=== PATIENT | male | born 1985 | race African-American/Black ===

== ENCOUNTER 2021-02-19 17:04 | Observation (INO) | payer SELFPAY ==
[2021-02-19] MEDS ORDERED: Sodium Chloride 0.9% 1,000 ML IV ONE ×3 (18:27→22:09)
--- NOTE | 2021-02-19 18:33 | EDM.PDOC ---
ED HPI GENERAL MEDICAL PROBLEM - General Chief Complaint: Exposure to Heat or Cold Stated Complaint: HEAT EXHAUSTION Time Seen by Provider: 02/19/21 17:16 - History of Present Illness INITIAL COMMENTS - FREE TEXT/NARRATIVE: 35-year-old male history of hypertension diabetes presents to the emergency department complaining of feeling weakness after working outside in the heat. 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 He had a 30-minute break when he was in the car and the air conditioner. Patient had one episode of vomiting. Patient denies any chest pain or shortness of breath. There is no diarrhea or abdominal pain. There are no other symptoms. Patient is feeling better now that he is out of the sun. - Related Data Allergies Allergy/AdvReac Type Severity Reaction Status Date / Time No Known Allergies Allergy Verified 02/19/21 18:07 Home Meds: Home Meds Enalapril [Vasotec] 10 mg PO DAILY 02/19/21 [History] atorvaSTATin [Lipitor] 80 mg PO DAILY 02/19/21 [History] metFORMIN [Glucophage XR] 1,000 mg PO BID 02/19/21 [History] Past Medical History HEENT History: Reports: None Cardiovascular History: Reports: High Cholesterol, Hypertension Respiratory History: Reports: None Gastrointestinal History: Reports: None Genitourinary History: Reports: None Musculoskeletal History: Reports: None Neurological History: Reports: None Psychiatric History: Reports: None Endocrine/Metabolic History: Reports: Diabetes, Type II Hematologic History: Reports: None Immunologic History: Reports: None Oncologic (Cancer) History: Reports: None Dermatologic History: Reports: None - Infectious Disease History Infectious Disease History: Reports: None - Past Surgical History Head Surgeries/Procedures: Reports: None HEENT Surgical History: Reports: None Cardiovascular Surgical History: Reports: None Respiratory Surgical History: Reports: None GI Surgical History: Reports: None Male Surgical History: Reports: None Endocrine Surgical History: Reports: None Neurological Surgical History: Reports: None Musculoskeletal Surgical History: Reports: None Oncologic Surgical History: Reports: None Dermatological Surgical History: Reports: None Social & Family History - Family History Family Medical History: No Pertinent Family History - Tobacco Use Tobacco Use Status *Q: Never Tobacco User - Recreational Drug Use Recreational Drug Use: Yes Recreational Drug Type: Reports: Marijuana/Hashish Recreational Drug Use Frequency: Rarely ED ROS GENERAL - Review of Systems Review Of Systems: See Below Constitutional: Denies: Fever Respiratory: Denies: Shortness of Breath Cardiovascular: Denies: Chest Pain GI/Abdominal: Reports: Vomiting. Denies: Abdominal Pain : Denies: Dysuria, Flank Pain Musculoskeletal: Reports: Joint Pain Skin: Denies: Rash Neurological: Denies: Confusion, Dizziness, Headache, Numbness, Paresthesia, Trouble Speaking, Change in Speech Free Text/Narrative/Comment: Constitutional: No fevers, chills, Respiratory: No shortness of breath, cough Cardiovascular: No Chest pain, palpitations Gastrointestinal: No diarrhea Genitourinary: No pain with urination. No frequency Tello/Lymph: Negative for bruising tendency, Musculoskeletal: no decreased range of motion, trauma Integumentary: No rash, bruising Neurologic: No numbness or weakness ED EXAM, GENERAL - Physical Exam Exam: See Below Free Text/Narrative:: CONSTITUTIONAL: well appearing in no acute distress SKIN: Warm, dry, and intact without rash HENT: Normocephalic, atraumatic, PULMONARY: clear to ausculation bilaterally. No rales, rhonchi, wheezing CARDIOVASCULAR: regular rate, No murmur, rubs, or gallops GASTROINTESTINAL: nondistended, nontender NEUROLOGIC: normal speech, II-XII intact. light touch/5/5 power equal and symmetric in upper and lower extremities without deficit. GCSL 15 MUSCULOSKELETAL: no gross deformities, atraumatic PSYCHIATRIC: normal mood and affect Course - Vital Signs Text/Narrative:: Patient presents to the emergency department with heat related illness. Patient has evidence of rhabdomyolysis with ATA. Moderate bump in LFTs. Patient treated with IV fluids and was brought in for continued treatment and management. Admitted 8pm Narcissa. Last Recorded V/S: Last Vital Signs Temp 36.3 C 02/19/21 18:08 Pulse 100 02/19/21 19:55 Resp 18 02/19/21 19:55 BP 130/70 02/19/21 19:55 Pulse Ox 97 02/19/21 19:55 - Orders/Labs/Meds Orders: Active Orders 24 hr Category Date Time Status Admission Status [Patient Status] [ADT] Stat ADT 02/19/21 20:10 Active Labs: Laboratory Tests 02/19/21 02/19/21 02/19/21 Range/Units 18:40 18:40 18:40 WBC 9.90 (4.0-11.0) K/uL RBC 5.67 (4.50-5.90) M/uL Hgb 14.9 (13.0-17.0) g/dL Hct 44.7 (38.0-50.0) % MCV 78.8 L (80.0-98.0) fL MCH 26.3 L (27.0-32.0) pg MCHC 33.3 (31.0-37.0) g/dL RDW Std Deviation 39.8 (28.0-62.0) fl RDW Coeff of Mary 14 (11.0-15.0) % Plt Count 337 (150-400) K/uL MPV 10.80 (7.40-12.00) fL Neut % (Auto) 61.1 (48.0-80.0) % Lymph % (Auto) 30.5 (16.0-40.0) % [place] % (Auto) 8.1 (0.0-15.0) % Eos % (Auto) 0.1 (0.0-7.0) % Baso % (Auto) 0.2 (0.0-1.5) % Neut # (Auto) 6.1 H (1.4-5.7) K/uL Lymph # (Auto) 3.0 H (0.6-2.4) K/uL [place] # (Auto) 0.8 (0.0-0.8) K/uL Eos # (Auto) 0.0 (0.0-0.7) K/uL Baso # (Auto) 0.0 (0.0-0.1) K/uL Nucleated RBC % 0.0 /100WBC Nucleated RBCs # 0 K/uL INR 1.06 Sodium 131 L (136-148) mmol/L Potassium 5.6 H (3.5-5.1) mmol/L Chloride 95 L (98-107) mmol/L Carbon Dioxide 27.6 (21.0-32.0) mmol/L BUN 25 H (7.0-18.0) mg/dL Creatinine 1.7 H (0.8-1.3) mg/dL Est Cr Clr Drug Dosing 63.37 mL/min Estimated GFR (MDRD) 55.2 ml/min Glucose 146 H (74-106) mg/dL Calcium 9.1 (8.5-10.1) mg/dL Total Bilirubin 0.9 (0.2-1.0) mg/dL AST 205 H (15-37) IU/L ALT 81 H (14-63) IU/L Alkaline Phosphatase 93 (46-116) U/L Creatine Kinase 75276 H (26-308) U/L Total Protein 8.6 H (6.4-8.2) g/dL Albumin 4.2 (3.4-5.0) g/dL Globulin 4.4 H (2.6-4.0) g/dL Albumin/Globulin Ratio 1.0 (0.9-1.6) Urine Color Urine Appearance Urine pH (5.0-8.0) Ur Specific [place] (1.001-1.035) Urine Protein (NEGATIVE) mg/dL Urine Glucose (UA) (NEGATIVE) mg/dL Urine Ketones (NEGATIVE) mg/dL Urine Occult Blood (NEGATIVE) Urine Nitrite (NEGATIVE) Urine Bilirubin (NEGATIVE) Urine Urobilinogen (<2.0) EU/dL Ur Leukocyte Esterase (NEGATIVE) U Hyaline Cast (Auto) (0-2/LPF) Urine RBC (0-2/HPF) Urine WBC (0-5/HPF) Ur Epithelial Cells (NONE-FEW) Urine Bacteria (NEGATIVE) Urine Mucus (NONE-MOD) 02/19/21 Range/Units 19:53 WBC (4.0-11.0) K/uL RBC (4.50-5.90) M/uL Hgb (13.0-17.0) g/dL Hct (38.0-50.0) % MCV (80.0-98.0) fL MCH (27.0-32.0) pg MCHC (31.0-37.0) g/dL RDW Std Deviation (28.0-62.0) fl RDW Coeff of Mary (11.0-15.0) % Plt Count (150-400) K/uL MPV (7.40-12.00) fL Neut % (Auto) (48.0-80.0) % Lymph % (Auto) (16.0-40.0) % [place] % (Auto) (0.0-15.0) % Eos % (Auto) (0.0-7.0) % Baso % (Auto) (0.0-1.5) % Neut # (Auto) (1.4-5.7) K/uL Lymph # (Auto) (0.6-2.4) K/uL [place] # (Auto) (0.0-0.8) K/uL Eos # (Auto) (0.0-0.7) K/uL Baso # (Auto) (0.0-0.1) K/uL Nucleated RBC % /100WBC Nucleated RBCs # K/uL INR Sodium (136-148) mmol/L Potassium (3.5-5.1) mmol/L Chloride (98-107) mmol/L Carbon Dioxide (21.0-32.0) mmol/L BUN (7.0-18.0) mg/dL Creatinine (0.8-1.3) mg/dL Est Cr Clr Drug Dosing mL/min Estimated GFR (MDRD) ml/min Glucose (74-106) mg/dL Calcium (8.5-10.1) mg/dL Total Bilirubin (0.2-1.0) mg/dL AST (15-37) IU/L ALT (14-63) IU/L Alkaline Phosphatase (46-116) U/L Creatine Kinase (26-308) U/L Total Protein (6.4-8.2) g/dL Albumin (3.4-5.0) g/dL Globulin (2.6-4.0) g/dL Albumin/Globulin Ratio (0.9-1.6) Urine Color YELLOW Urine Appearance CLEAR Urine pH 5.0 (5.0-8.0) Ur Specific [place] 1.020 (1.001-1.035) Urine Protein NEGATIVE (NEGATIVE) mg/dL Urine Glucose (UA) NEGATIVE (NEGATIVE) mg/dL Urine Ketones TRACE H (NEGATIVE) mg/dL Urine Occult Blood NEGATIVE (NEGATIVE) Urine Nitrite NEGATIVE (NEGATIVE) Urine Bilirubin NEGATIVE (NEGATIVE) Urine Urobilinogen 0.2 (<2.0) EU/dL Ur Leukocyte Esterase NEGATIVE (NEGATIVE) U Hyaline Cast (Auto) 2-4 (0-2/LPF) Urine RBC NONE SEEN (0-2/HPF) Urine WBC 0-2 (0-5/HPF) Ur Epithelial Cells RARE (NONE-FEW) Urine Bacteria FEW (NEGATIVE) Urine Mucus LIGHT (NONE-MOD) Meds: Medications Discontinued Medications Generic Name Dose Route Start Last Admin Trade Name Dominik PRN Reason Stop Dose Admin Sodium Chloride 1,000 mls @ 1,000 mls/min 02/19/21 18:27 02/19/21 18:34 Normal Saline IV 02/19/21 18:28 1,000 mls/min .Bolus ONE Administration Sodium Chloride 1,000 mls @ 1,000 mls/min 02/19/21 18:30 02/19/21 18:34 Normal Saline IV 02/19/21 18:31 1,000 mls/min .Bolus ONE Administration Departure - Departure Time of Disposition: 20:03 Disposition: Admitted As Inpatient 64 Condition: Good Clinical Impression: Heat exhaustion, ATA (acute kidney injury), Rhabdomyolysis - Discharge Information Referrals: PCP,Not In Area [Primary Care Provider] - Forms: ED Department Discharge Sepsis Event Note (ED) - Evaluation Sepsis Screening Result: No Definite Risk - Focused Exam Vital Signs: Vital Signs Temp Pulse Resp BP Pulse Ox 02/19/21 19:55 100 18 130/70 97 02/19/21 19:19 72 18 121/72 97 02/19/21 18:08 36.3 C 103 H 18 115/70 99 - My Orders Last 24 Hours: My Active Orders 02/19/21 20:10 Admission Status [Patient Status] [ADT] Stat - Assessment/Plan Last 24 Hours: My Active Orders 02/19/21 20:10 Admission Status [Patient Status] [ADT] Stat
[2021-02-19 19:24] LABS: CARBON DIOXIDE,CO2 27.6 mmol/L (21.0-32.0); POTASSIUM,K 5.6 mmol/L (3.5-5.1)
[2021-02-19] MEDS ORDERED: Glucagon,Human Recombinant 1 MG Vial IM PRN (23:28)
[2021-02-19] MEDS ORDERED: 50% Dextrose in Water 50 ML Syringe IVPUSH PRN (23:28)
--- NOTE | 2021-02-19 23:33 | PCM.HP.2 ---
H&P History of Present Illness - General Date of Service: 02/19/21 Admit Problem/Dx: Admission Diagnosis/Problem Admission Diagnosis/Problem Heat exhaustion - History of Present Illness Initial Comments - Free Text/Narative: 35 yo male with pmh of HTN, DM, who presents to the ED with complaints of heat exhaustion. Patient reports fatigue, muscle cramps, and vomiting starting this afternoon. 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 - Related Data Allergies/Adverse Reactions: Allergies Allergy/AdvReac Type Severity Reaction Status Date / Time No Known Allergies Allergy Verified 02/20/21 16:41 Home Medications: Home Meds Enalapril [Vasotec] 10 mg PO DAILY 02/19/21 [History] atorvaSTATin [Lipitor] 80 mg PO DAILY 02/19/21 [History] metFORMIN [Glucophage XR] 1,000 mg PO BID 02/19/21 [History] Past Medical History HEENT History: Reports: None Cardiovascular History: Reports: High Cholesterol, Hypertension Respiratory History: Reports: None Gastrointestinal History: Reports: None Genitourinary History: Reports: None Musculoskeletal History: Reports: None Neurological History: Reports: None Psychiatric History: Reports: None Endocrine/Metabolic History: Reports: Diabetes, Type II, Obesity/BMI 30+ Hematologic History: Reports: None Immunologic History: Reports: None Oncologic (Cancer) History: Reports: None Dermatologic History: Reports: None - Infectious Disease History Infectious Disease History: Reports: Chicken Pox - Past Surgical History Head Surgeries/Procedures: Reports: None HEENT Surgical History: Reports: None Cardiovascular Surgical History: Reports: None Respiratory Surgical History: Reports: None GI Surgical History: Reports: None Male Surgical History: Reports: None Endocrine Surgical History: Reports: None Neurological Surgical History: Reports: None Musculoskeletal Surgical History: Reports: None Oncologic Surgical History: Reports: None Dermatological Surgical History: Reports: None Social & Family History - Family History Family Medical History: No Pertinent Family History - Tobacco Use Tobacco Use Status *Q: Light Tobacco User Years of Tobacco use: 0 Packs/Tins Daily: 0 Second Hand Smoke Exposure: No - Caffeine Use Caffeine Use: Reports: None - Recreational Drug Use Recreational Drug Use: Yes Drug Use in Last 12 Months: Yes Recreational Drug Type: Reports: Marijuana/Hashish Recreational Drug Use Frequency: Daily H&P Review of Systems - Review of Systems: Review Of Systems: Comprehensive ROS is negative, except as noted in HPI. Exam - Exam Exam: See Below - Vital Signs Vital Signs: Last Vital Signs Temp 36.3 C 02/19/21 18:08 Pulse 92 02/19/21 21:05 Resp 18 02/19/21 21:05 BP 124/72 02/19/21 21:05 Pulse Ox 97 02/19/21 21:05 Weight: 143.7 kg - Exam General: Alert, Oriented HEENT: Mucosa Moist & [place] Neck: Supple Lungs: Clear to Auscultation, Normal Respiratory Effort Cardiovascular: Regular Rate, Regular Rhythm GI/Abdominal Exam: Normal Bowel Sounds, Soft, Non-Tender Extremities: Non-Tender, No Pedal Edema Skin: Warm, Dry, Intact Neurological: Cranial Nerves Intact, Normal Gait. No: Focal Deficit - Patient Data Lab Results Last 24 hrs: Laboratory Results - last 24 hr 02/19/21 02/19/21 02/19/21 Range/Units 18:40 18:40 18:40 WBC 9.90 (4.0-11.0) K/uL RBC 5.67 (4.50-5.90) M/uL Hgb 14.9 (13.0-17.0) g/dL Hct 44.7 (38.0-50.0) % MCV 78.8 L (80.0-98.0) fL MCH 26.3 L (27.0-32.0) pg MCHC 33.3 (31.0-37.0) g/dL RDW Std Deviation 39.8 (28.0-62.0) fl RDW Coeff of Mary 14 (11.0-15.0) % Plt Count 337 (150-400) K/uL MPV 10.80 (7.40-12.00) fL Neut % (Auto) 61.1 (48.0-80.0) % Lymph % (Auto) 30.5 (16.0-40.0) % [place] % (Auto) 8.1 (0.0-15.0) % Eos % (Auto) 0.1 (0.0-7.0) % Baso % (Auto) 0.2 (0.0-1.5) % Neut # (Auto) 6.1 H (1.4-5.7) K/uL Lymph # (Auto) 3.0 H (0.6-2.4) K/uL [place] # (Auto) 0.8 (0.0-0.8) K/uL Eos # (Auto) 0.0 (0.0-0.7) K/uL Baso # (Auto) 0.0 (0.0-0.1) K/uL Nucleated RBC % 0.0 /100WBC Nucleated RBCs # 0 K/uL INR 1.06 Sodium 131 L (136-148) mmol/L Potassium 5.6 H (3.5-5.1) mmol/L Chloride 95 L (98-107) mmol/L Carbon Dioxide 27.6 (21.0-32.0) mmol/L BUN 25 H (7.0-18.0) mg/dL Creatinine 1.7 H (0.8-1.3) mg/dL Est Cr Clr Drug Dosing 63.37 mL/min Estimated GFR (MDRD) 55.2 ml/min Glucose 146 H (74-106) mg/dL Calcium 9.1 (8.5-10.1) mg/dL Total Bilirubin 0.9 (0.2-1.0) mg/dL AST 205 H (15-37) IU/L ALT 81 H (14-63) IU/L Alkaline Phosphatase 93 (46-116) U/L Creatine Kinase 07422 H (26-308) U/L Total Protein 8.6 H (6.4-8.2) g/dL Albumin 4.2 (3.4-5.0) g/dL Globulin 4.4 H (2.6-4.0) g/dL Albumin/Globulin Ratio 1.0 (0.9-1.6) Urine Color Urine Appearance Urine pH (5.0-8.0) Ur Specific [place] (1.001-1.035) Urine Protein (NEGATIVE) mg/dL Urine Glucose (UA) (NEGATIVE) mg/dL Urine Ketones (NEGATIVE) mg/dL Urine Occult Blood (NEGATIVE) Urine Nitrite (NEGATIVE) Urine Bilirubin (NEGATIVE) Urine Urobilinogen (<2.0) EU/dL Ur Leukocyte Esterase (NEGATIVE) U Hyaline Cast (Auto) (0-2/LPF) Urine RBC (0-2/HPF) Urine WBC (0-5/HPF) Ur Epithelial Cells (NONE-FEW) Urine Bacteria (NEGATIVE) Urine Mucus (NONE-MOD) 02/19/21 Range/Units 19:53 WBC (4.0-11.0) K/uL RBC (4.50-5.90) M/uL Hgb (13.0-17.0) g/dL Hct (38.0-50.0) % MCV (80.0-98.0) fL MCH (27.0-32.0) pg MCHC (31.0-37.0) g/dL RDW Std Deviation (28.0-62.0) fl RDW Coeff of Mary (11.0-15.0) % Plt Count (150-400) K/uL MPV (7.40-12.00) fL Neut % (Auto) (48.0-80.0) % Lymph % (Auto) (16.0-40.0) % [place] % (Auto) (0.0-15.0) % Eos % (Auto) (0.0-7.0) % Baso % (Auto) (0.0-1.5) % Neut # (Auto) (1.4-5.7) K/uL Lymph # (Auto) (0.6-2.4) K/uL [place] # (Auto) (0.0-0.8) K/uL Eos # (Auto) (0.0-0.7) K/uL Baso # (Auto) (0.0-0.1) K/uL Nucleated RBC % /100WBC Nucleated RBCs # K/uL INR Sodium (136-148) mmol/L Potassium (3.5-5.1) mmol/L Chloride (98-107) mmol/L Carbon Dioxide (21.0-32.0) mmol/L BUN (7.0-18.0) mg/dL Creatinine (0.8-1.3) mg/dL Est Cr Clr Drug Dosing mL/min Estimated GFR (MDRD) ml/min Glucose (74-106) mg/dL Calcium (8.5-10.1) mg/dL Total Bilirubin (0.2-1.0) mg/dL AST (15-37) IU/L ALT (14-63) IU/L Alkaline Phosphatase (46-116) U/L Creatine Kinase (26-308) U/L Total Protein (6.4-8.2) g/dL Albumin (3.4-5.0) g/dL Globulin (2.6-4.0) g/dL Albumin/Globulin Ratio (0.9-1.6) Urine Color YELLOW Urine Appearance CLEAR Urine pH 5.0 (5.0-8.0) Ur Specific [place] 1.020 (1.001-1.035) Urine Protein NEGATIVE (NEGATIVE) mg/dL Urine Glucose (UA) NEGATIVE (NEGATIVE) mg/dL Urine Ketones TRACE H (NEGATIVE) mg/dL Urine Occult Blood NEGATIVE (NEGATIVE) Urine Nitrite NEGATIVE (NEGATIVE) Urine Bilirubin NEGATIVE (NEGATIVE) Urine Urobilinogen 0.2 (<2.0) EU/dL Ur Leukocyte Esterase NEGATIVE (NEGATIVE) U Hyaline Cast (Auto) 2-4 (0-2/LPF) Urine RBC NONE SEEN (0-2/HPF) Urine WBC 0-2 (0-5/HPF) Ur Epithelial Cells RARE (NONE-FEW) Urine Bacteria FEW (NEGATIVE) Urine Mucus LIGHT (NONE-MOD) Result Diagrams: 02/20/21 07:00 02/21/21 05:56 Sepsis Event Note - Evaluation Sepsis Screening Result: No Definite Risk - Focused Exam Vital Signs: Vital Signs Temp Pulse Resp BP Pulse Ox 02/19/21 21:05 92 18 124/72 97 02/19/21 19:55 100 18 130/70 97 02/19/21 19:19 72 18 121/72 97 02/19/21 18:08 36.3 C 103 H 18 115/70 99 Problem List Initiated/Reviewed/Updated: Yes Orders Last 24hrs: Active Orders 24 hr Category Date Time Status Admission Status [Patient Status] [ADT] Stat ADT 02/19/21 20:10 Active Antiembolic Devices [RC] PER UNIT ROUTINE Care 02/19/21 23:26 Ordered Blood Glucose Check, Bedside [RC] TIDMEALS Care 02/19/21 23:25 Ordered Oxygen Therapy [RC] PRN Care 02/19/21 23:25 Ordered Up ad [place] [RC] ASDIRECTED Care 02/19/21 23:25 Ordered VTE/DVT Education [RC] PER UNIT ROUTINE Care 02/19/21 23:25 Ordered Vital Signs [RC] Q4H Care 02/19/21 23:25 Ordered [place] [employer] Diet [DIET] Diet 02/19/21 Breakfast Ordered BASIC METABOLIC PANEL,BMP [CHEM] Routine Lab 02/19/21 23:25 Ordered BASIC METABOLIC PANEL,BMP [CHEM] Routine Lab 02/20/21 07:00 Ordered CBC W/O DIFF,HEMOGRAM [HEME] Routine Lab 02/20/21 07:00 Ordered CPK [CREATINE KINASE,CK] [CHEM] Routine Lab 02/19/21 23:25 Ordered CREATINE KINASE,CK [CHEM] Routine Lab 02/20/21 07:00 Ordered Dextrose 50% in Water Med 02/19/21 23:28 Ordered 50 ml IVPUSH ASDIRECTED PRN Glucagon,Human Recombinant [GlucaGen] Med 02/19/21 23:28 Ordered 1 mg IM ASDIRECTED PRN Insulin Aspart [NovoLOG] Med 02/20/21 07:30 Ordered See Protocol SUBCUT TIDAC Sodium Chloride 0.9% [Normal Saline] 1,000 ml Med 02/19/21 23:30 Ordered IV ASDIRECTED Sequential Compression Device [OM.PC] Per Unit Routine Oth 02/19/21 23:25 Ordered Resuscitation Status Routine Resus Stat 02/19/21 23:25 Ordered Medication Orders Dextrose/Water (50% Dextrose In Water 50 Ml Syringe) 50 ml IVPUSH ASDIRECTED PRN PRN Reason: Hypoglycemia Glucagon (Glucagon,Human Recombinant 1 Mg Vial) 1 mg IM ASDIRECTED PRN PRN Reason: Hypoglycemia Sodium Chloride (Normal Saline) 1,000 mls @ 250 mls/hr IV ASDIRECTED [place]RAD Insulin Aspart (Insulin Aspart 100 Units/Ml 3 Ml Pen) 0 unit SUBCUT TIDAC [place]; Protocol Assessment/Plan Comment:: 35 yo male admitted with heat exhaustion, dehydraiton, acute kidney injury, and rhabdomyolsis. We will continue IV fluid resuscitation. We will trend BMP and CPK.
[2021-02-20 00:16] LABS: BLOOD UREA NITROGEN,BUN 20 mg/dL (7.0-18.0); CARBON DIOXIDE,CO2 24.4 mmol/L (21.0-32.0); CHLORIDE,CL 97 mmol/L (98-107); GLUCOSE RANDOM 109 mg/dL (74-106); SODIUM,NA 133 mmol/L (136-148)
[2021-02-20] MEDS: Sodium Chloride 0.9% 1,000 ML IV SCH ×6 (00:22→21:58)
[2021-02-20 07:32] LABS: HEMOGLOBIN A1C 6.9 %
[2021-02-20] MEDS: Insulin Aspart 100 Units/ML 3 ML Pen SUBCUT SCH ×3 (07:36→17:55)
[2021-02-20 08:11] LABS: BLOOD UREA NITROGEN,BUN 16 mg/dL (7.0-18.0); CARBON DIOXIDE,CO2 27.5 mmol/L (21.0-32.0); CHLORIDE,CL 103 mmol/L (98-107); GLUCOSE RANDOM 103 mg/dL (74-106); POTASSIUM,K 5.7 mmol/L (3.5-5.1); SODIUM,NA 135 mmol/L (136-148)
[2021-02-20 14:48] LABS: BLOOD UREA NITROGEN,BUN 16 mg/dL (7.0-18.0); CARBON DIOXIDE,CO2 24.2 mmol/L (21.0-32.0); CHLORIDE,CL 103 mmol/L (98-107); GLUCOSE RANDOM 115 mg/dL (74-106); POTASSIUM,K 5.1 mmol/L (3.5-5.1); SODIUM,NA 137 mmol/L (136-148)
--- NOTE | 2021-02-20 16:19 | PCM.PN ---
- General Info Date of Service: 02/20/21 Admission Dx/Problem (Free Text): Admission Diagnosis/Problem Admission Diagnosis/Problem Heat exhaustion Subjective Update: 35-year-old male with history of DM and hypertension is admitted for heat exhaustion, rhabdomyolysis and ATA. He is currently on normal saline at 250mL/hr. Patient is from [place], [place] and works as a sandblaster/painter set. Patient was working out in the sun yesterday for 10 hours and became weak. He h ad an episode of vomiting. He did not feel well and presented to the ER. No acute events overnight. He denies muscle cramps, nausea, vomiting, diarrhea, headaches and lightheadedness. He denies chest pain. At home patient takes enalapril 10 mg. Atorvastatin 80 mg. And Metformin 1000 mg twice daily. - Review of Systems General: Denies: Fever, Weakness, Chills HEENT: Denies: No Symptoms Pulmonary: Reports: No Symptoms Cardiovascular: Reports: No Symptoms Gastrointestinal: Denies: Abdominal Pain, Diarrhea, Nausea, Vomiting Genitourinary: Denies: Dysuria, Burning, Pain, Hematuria, Flank Pain Musculoskeletal: Denies: Arm Pain, Back Pain, Leg Pain, Joint Pain, Joint Swelling Skin: Denies: Cyanosis, Jaundice, Pallor, Rash Neurological: Denies: Confusion, Dizziness, Headache, Numbness, Paresthesia Psychiatric: Denies: Confusion - Patient Data Vitals - Most Recent: Last Vital Signs Temp 97.7 F 02/20/21 12:00 Pulse 88 02/20/21 12:00 Resp 16 02/20/21 12:00 BP 101/49 L 02/20/21 12:00 Pulse Ox 99 02/20/21 12:00 Weight - Most Recent: 316 lb 12.868 oz I&O - Last 24 Hours: Intake & Output 02/20/21 02/20/21 02/20/21 06:59 14:59 22:59 Intake Total 1800 Output Total 1450 Balance 350 Lab Results Last 24 Hours: Laboratory Results - last 24 hr 02/19/21 02/19/21 02/19/21 Range/Units 18:40 18:40 18:40 WBC 9.90 (4.0-11.0) K/uL RBC 5.67 (4.50-5.90) M/uL Hgb 14.9 (13.0-17.0) g/dL Hct 44.7 (38.0-50.0) % MCV 78.8 L (80.0-98.0) fL MCH 26.3 L (27.0-32.0) pg MCHC 33.3 (31.0-37.0) g/dL RDW Std Deviation 39.8 (28.0-62.0) fl RDW Coeff of Mary 14 (11.0-15.0) % Plt Count 337 (150-400) K/uL MPV 10.80 (7.40-12.00) fL Neut % (Auto) 61.1 (48.0-80.0) % Lymph % (Auto) 30.5 (16.0-40.0) % Rains % (Auto) 8.1 (0.0-15.0) % Eos % (Auto) 0.1 (0.0-7.0) % Baso % (Auto) 0.2 (0.0-1.5) % Neut # (Auto) 6.1 H (1.4-5.7) K/uL Lymph # (Auto) 3.0 H (0.6-2.4) K/uL Rains # (Auto) 0.8 (0.0-0.8) K/uL Eos # (Auto) 0.0 (0.0-0.7) K/uL Baso # (Auto) 0.0 (0.0-0.1) K/uL Nucleated RBC % 0.0 /100WBC Nucleated RBCs # 0 K/uL INR 1.06 Sodium 131 L (136-148) mmol/L Potassium 5.6 H (3.5-5.1) mmol/L Chloride 95 L (98-107) mmol/L Carbon Dioxide 27.6 (21.0-32.0) mmol/L BUN 25 H (7.0-18.0) mg/dL Creatinine 1.7 H (0.8-1.3) mg/dL Est Cr Clr Drug Dosing 63.37 mL/min Estimated GFR (MDRD) 55.2 ml/min Glucose 146 H (74-106) mg/dL POC Glucose (70-99) mg/dL Hemoglobin A1c (4.5 - 6.2) % Calcium 9.1 (8.5-10.1) mg/dL Total Bilirubin 0.9 (0.2-1.0) mg/dL AST 205 H (15-37) IU/L ALT 81 H (14-63) IU/L Alkaline Phosphatase 93 (46-116) U/L Creatine Kinase 39875 H (26-308) U/L Total Protein 8.6 H (6.4-8.2) g/dL Albumin 4.2 (3.4-5.0) g/dL Globulin 4.4 H (2.6-4.0) g/dL Albumin/Globulin Ratio 1.0 (0.9-1.6) Urine Color Urine Appearance Urine pH (5.0-8.0) Ur Specific [place] (1.001-1.035) Urine Protein (NEGATIVE) mg/dL Urine Glucose (UA) (NEGATIVE) mg/dL Urine Ketones (NEGATIVE) mg/dL Urine Occult Blood (NEGATIVE) Urine Nitrite (NEGATIVE) Urine Bilirubin (NEGATIVE) Urine Urobilinogen (<2.0) EU/dL Ur Leukocyte Esterase (NEGATIVE) U Hyaline Cast (Auto) (0-2/LPF) Urine RBC (0-2/HPF) Urine WBC (0-5/HPF) Ur Epithelial Cells (NONE-FEW) Urine Bacteria (NEGATIVE) Urine Mucus (NONE-MOD) 02/19/21 02/19/21 02/20/21 Range/Units 19:53 23:40 06:43 WBC (4.0-11.0) K/uL RBC (4.50-5.90) M/uL Hgb (13.0-17.0) g/dL Hct (38.0-50.0) % MCV (80.0-98.0) fL MCH (27.0-32.0) pg MCHC (31.0-37.0) g/dL RDW Std Deviation (28.0-62.0) fl RDW Coeff of Mary (11.0-15.0) % Plt Count (150-400) K/uL MPV (7.40-12.00) fL Neut % (Auto) (48.0-80.0) % Lymph % (Auto) (16.0-40.0) % Rains % (Auto) (0.0-15.0) % Eos % (Auto) (0.0-7.0) % Baso % (Auto) (0.0-1.5) % Neut # (Auto) (1.4-5.7) K/uL Lymph # (Auto) (0.6-2.4) K/uL Rains # (Auto) (0.0-0.8) K/uL Eos # (Auto) (0.0-0.7) K/uL Baso # (Auto) (0.0-0.1) K/uL Nucleated RBC % /100WBC Nucleated RBCs # K/uL INR Sodium 133 L (136-148) mmol/L Potassium 5.0 (3.5-5.1) mmol/L Chloride 97 L (98-107) mmol/L Carbon Dioxide 24.4 (21.0-32.0) mmol/L BUN 20 H (7.0-18.0) mg/dL Creatinine 1.3 (0.8-1.3) mg/dL Est Cr Clr Drug Dosing 80.33 mL/min Estimated GFR (MDRD) > 60.0 ml/min Glucose 109 H (74-106) mg/dL POC Glucose 101 H (70-99) mg/dL Hemoglobin A1c (4.5 - 6.2) % Calcium 8.0 L (8.5-10.1) mg/dL Total Bilirubin (0.2-1.0) mg/dL AST (15-37) IU/L ALT (14-63) IU/L Alkaline Phosphatase (46-116) U/L Creatine Kinase 8720 H (26-308) U/L Total Protein (6.4-8.2) g/dL Albumin (3.4-5.0) g/dL Globulin (2.6-4.0) g/dL Albumin/Globulin Ratio (0.9-1.6) Urine Color YELLOW Urine Appearance CLEAR Urine pH 5.0 (5.0-8.0) Ur Specific [place] 1.020 (1.001-1.035) Urine Protein NEGATIVE (NEGATIVE) mg/dL Urine Glucose (UA) NEGATIVE (NEGATIVE) mg/dL Urine Ketones TRACE H (NEGATIVE) mg/dL Urine Occult Blood NEGATIVE (NEGATIVE) Urine Nitrite NEGATIVE (NEGATIVE) Urine Bilirubin NEGATIVE (NEGATIVE) Urine Urobilinogen 0.2 (<2.0) EU/dL Ur Leukocyte Esterase NEGATIVE (NEGATIVE) U Hyaline Cast (Auto) 2-4 (0-2/LPF) Urine RBC NONE SEEN (0-2/HPF) Urine WBC 0-2 (0-5/HPF) Ur Epithelial Cells RARE (NONE-FEW) Urine Bacteria FEW (NEGATIVE) Urine Mucus LIGHT (NONE-MOD) 02/20/21 02/20/21 02/20/21 Range/Units 07:00 07:00 07:00 WBC 7.26 (4.0-11.0) K/uL RBC 4.87 (4.50-5.90) M/uL Hgb 12.6 L (13.0-17.0) g/dL Hct 38.7 (38.0-50.0) % MCV 79.5 L (80.0-98.0) fL MCH 25.9 L (27.0-32.0) pg MCHC 32.6 (31.0-37.0) g/dL RDW Std Deviation 40.6 (28.0-62.0) fl RDW Coeff of Mary 14 (11.0-15.0) % Plt Count 258 (150-400) K/uL MPV 10.20 (7.40-12.00) fL Neut % (Auto) (48.0-80.0) % Lymph % (Auto) (16.0-40.0) % Rains % (Auto) (0.0-15.0) % Eos % (Auto) (0.0-7.0) % Baso % (Auto) (0.0-1.5) % Neut # (Auto) (1.4-5.7) K/uL Lymph # (Auto) (0.6-2.4) K/uL Rains # (Auto) (0.0-0.8) K/uL Eos # (Auto) (0.0-0.7) K/uL Baso # (Auto) (0.0-0.1) K/uL Nucleated RBC % 0.0 /100WBC Nucleated RBCs # 0 K/uL INR Sodium 135 L (136-148) mmol/L Potassium 5.7 H (3.5-5.1) mmol/L Chloride 103 (98-107) mmol/L Carbon Dioxide 27.5 (21.0-32.0) mmol/L BUN 16 (7.0-18.0) mg/dL Creatinine 1.0 (0.8-1.3) mg/dL Est Cr Clr Drug Dosing 104.43 mL/min Estimated GFR (MDRD) > 60.0 ml/min Glucose 103 (74-106) mg/dL POC Glucose (70-99) mg/dL Hemoglobin A1c 6.9 H (4.5 - 6.2) % Calcium 8.1 L (8.5-10.1) mg/dL Total Bilirubin (0.2-1.0) mg/dL AST (15-37) IU/L ALT (14-63) IU/L Alkaline Phosphatase (46-116) U/L Creatine Kinase 5654 H (26-308) U/L Total Protein (6.4-8.2) g/dL Albumin (3.4-5.0) g/dL Globulin (2.6-4.0) g/dL Albumin/Globulin Ratio (0.9-1.6) Urine Color Urine Appearance Urine pH (5.0-8.0) Ur Specific [place] (1.001-1.035) Urine Protein (NEGATIVE) mg/dL Urine Glucose (UA) (NEGATIVE) mg/dL Urine Ketones (NEGATIVE) mg/dL Urine Occult Blood (NEGATIVE) Urine Nitrite (NEGATIVE) Urine Bilirubin (NEGATIVE) Urine Urobilinogen (<2.0) EU/dL Ur Leukocyte Esterase (NEGATIVE) U Hyaline Cast (Auto) (0-2/LPF) Urine RBC (0-2/HPF) Urine WBC (0-5/HPF) Ur Epithelial Cells (NONE-FEW) Urine Bacteria (NEGATIVE) Urine Mucus (NONE-MOD) 02/20/21 02/20/21 Range/Units 11:40 14:02 WBC (4.0-11.0) K/uL RBC (4.50-5.90) M/uL Hgb (13.0-17.0) g/dL Hct (38.0-50.0) % MCV (80.0-98.0) fL MCH (27.0-32.0) pg MCHC (31.0-37.0) g/dL RDW Std Deviation (28.0-62.0) fl RDW Coeff of Mary (11.0-15.0) % Plt Count (150-400) K/uL MPV (7.40-12.00) fL Neut % (Auto) (48.0-80.0) % Lymph % (Auto) (16.0-40.0) % Rains % (Auto) (0.0-15.0) % Eos % (Auto) (0.0-7.0) % Baso % (Auto) (0.0-1.5) % Neut # (Auto) (1.4-5.7) K/uL Lymph # (Auto) (0.6-2.4) K/uL Rains # (Auto) (0.0-0.8) K/uL Eos # (Auto) (0.0-0.7) K/uL Baso # (Auto) (0.0-0.1) K/uL Nucleated RBC % /100WBC Nucleated RBCs # K/uL INR Sodium 137 (136-148) mmol/L Potassium 5.1 (3.5-5.1) mmol/L Chloride 103 (98-107) mmol/L Carbon Dioxide 24.2 (21.0-32.0) mmol/L BUN 16 (7.0-18.0) mg/dL Creatinine 0.9 (0.8-1.3) mg/dL Est Cr Clr Drug Dosing 116.03 mL/min Estimated GFR (MDRD) > 60.0 ml/min Glucose 115 H (74-106) mg/dL POC Glucose 102 H (70-99) mg/dL Hemoglobin A1c (4.5 - 6.2) % Calcium 8.1 L (8.5-10.1) mg/dL Total Bilirubin (0.2-1.0) mg/dL AST (15-37) IU/L ALT (14-63) IU/L Alkaline Phosphatase (46-116) U/L Creatine Kinase (26-308) U/L Total Protein (6.4-8.2) g/dL Albumin (3.4-5.0) g/dL Globulin (2.6-4.0) g/dL Albumin/Globulin Ratio (0.9-1.6) Urine Color Urine Appearance Urine pH (5.0-8.0) Ur Specific [place] (1.001-1.035) Urine Protein (NEGATIVE) mg/dL Urine Glucose (UA) (NEGATIVE) mg/dL Urine Ketones (NEGATIVE) mg/dL Urine Occult Blood (NEGATIVE) Urine Nitrite (NEGATIVE) Urine Bilirubin (NEGATIVE) Urine Urobilinogen (<2.0) EU/dL Ur Leukocyte Esterase (NEGATIVE) U Hyaline Cast (Auto) (0-2/LPF) Urine RBC (0-2/HPF) Urine WBC (0-5/HPF) Ur Epithelial Cells (NONE-FEW) Urine Bacteria (NEGATIVE) Urine Mucus (NONE-MOD) Med Orders - Current: Current Medications Dextrose/Water (50% Dextrose In Water 50 Ml Syringe) 50 ml IVPUSH ASDIRECTED PRN PRN Reason: Hypoglycemia Enalapril Maleate (Enalapril 10 Mg Tab) 10 mg PO DAILY [facility] Last Admin: 02/20/21 09:50 Dose: 10 mg Documented by: Glucagon (Glucagon,Human Recombinant 1 Mg Vial) 1 mg IM ASDIRECTED PRN PRN Reason: Hypoglycemia Sodium Chloride (Normal Saline) 1,000 mls @ 250 mls/hr IV ASDIRECTED [facility] Last Admin: 02/20/21 13:19 Dose: 250 mls/hr Documented by: Insulin Aspart (Insulin Aspart 100 Units/Ml 3 Ml Pen) 0 unit SUBCUT TIDAC [facility]; Protocol Last Admin: 02/20/21 14:30 Dose: Not Given Documented by: Discontinued Medications Sodium Chloride (Normal Saline) 1,000 mls @ 1,000 mls/min IV .Bolus ONE Stop: 02/19/21 18:28 Last Admin: 02/19/21 18:34 Dose: 1,000 mls/min Documented by: Sodium Chloride (Normal Saline) 1,000 mls @ 1,000 mls/min IV .Bolus ONE Stop: 02/19/21 18:31 Last Admin: 02/19/21 18:34 Dose: 1,000 mls/min Documented by: Sodium Chloride (Normal Saline) 1,000 mls @ 999 mls/hr IV .Bolus ONE Stop: 02/19/21 23:09 Last Admin: 02/19/21 22:26 Dose: 999 mls/hr Documented by: - Exam General: Alert, Oriented, Cooperative, No Acute Distress HEENT: Pupils Equal, EOMI Neck: Supple. No: JVD Lungs: Clear to Auscultation, Normal Respiratory Effort Cardiovascular: Regular Rate, Regular Rhythm, No Murmurs GI/Abdominal Exam: Normal Bowel Sounds, Soft, Non-Tender, No Distention Extremities: Normal Inspection, Normal Range of Motion, Non-Tender, No Pedal Edema, Normal Capillary Refill. No: Joint Swelling, Arm Pain, Stanley's Sign, Leg Pain, Limited Range of Motion, Redness Peripheral Pulses: 2+: Dorsalis Pedis (L), Dorsalis Pedis (R) Skin: Warm, Dry, Intact Neurological: No New Focal Deficit Psy/Mental Status: Alert, Normal Affect, Normal Mood - Patient Data Lab Results Last 24 hrs: Laboratory Results - last 24 hr 02/19/21 02/19/21 02/19/21 Range/Units 18:40 18:40 18:40 WBC 9.90 (4.0-11.0) K/uL RBC 5.67 (4.50-5.90) M/uL Hgb 14.9 (13.0-17.0) g/dL Hct 44.7 (38.0-50.0) % MCV 78.8 L (80.0-98.0) fL MCH 26.3 L (27.0-32.0) pg MCHC 33.3 (31.0-37.0) g/dL RDW Std Deviation 39.8 (28.0-62.0) fl RDW Coeff of Mary 14 (11.0-15.0) % Plt Count 337 (150-400) K/uL MPV 10.80 (7.40-12.00) fL Neut % (Auto) 61.1 (48.0-80.0) % Lymph % (Auto) 30.5 (16.0-40.0) % Rains % (Auto) 8.1 (0.0-15.0) % Eos % (Auto) 0.1 (0.0-7.0) % Baso % (Auto) 0.2 (0.0-1.5) % Neut # (Auto) 6.1 H (1.4-5.7) K/uL Lymph # (Auto) 3.0 H (0.6-2.4) K/uL Rains # (Auto) 0.8 (0.0-0.8) K/uL Eos # (Auto) 0.0 (0.0-0.7) K/uL Baso # (Auto) 0.0 (0.0-0.1) K/uL Nucleated RBC % 0.0 /100WBC Nucleated RBCs # 0 K/uL INR 1.06 Sodium 131 L (136-148) mmol/L Potassium 5.6 H (3.5-5.1) mmol/L Chloride 95 L (98-107) mmol/L Carbon Dioxide 27.6 (21.0-32.0) mmol/L BUN 25 H (7.0-18.0) mg/dL Creatinine 1.7 H (0.8-1.3) mg/dL Est Cr Clr Drug Dosing 63.37 mL/min Estimated GFR (MDRD) 55.2 ml/min Glucose 146 H (74-106) mg/dL POC Glucose (70-99) mg/dL Hemoglobin A1c (4.5 - 6.2) % Calcium 9.1 (8.5-10.1) mg/dL Total Bilirubin 0.9 (0.2-1.0) mg/dL AST 205 H (15-37) IU/L ALT 81 H (14-63) IU/L Alkaline Phosphatase 93 (46-116) U/L Creatine Kinase 03985 H (26-308) U/L Total Protein 8.6 H (6.4-8.2) g/dL Albumin 4.2 (3.4-5.0) g/dL Globulin 4.4 H (2.6-4.0) g/dL Albumin/Globulin Ratio 1.0 (0.9-1.6) Urine Color Urine Appearance Urine pH (5.0-8.0) Ur Specific [place] (1.001-1.035) Urine Protein (NEGATIVE) mg/dL Urine Glucose (UA) (NEGATIVE) mg/dL Urine Ketones (NEGATIVE) mg/dL Urine Occult Blood (NEGATIVE) Urine Nitrite (NEGATIVE) Urine Bilirubin (NEGATIVE) Urine Urobilinogen (<2.0) EU/dL Ur Leukocyte Esterase (NEGATIVE) U Hyaline Cast (Auto) (0-2/LPF) Urine RBC (0-2/HPF) Urine WBC (0-5/HPF) Ur Epithelial Cells (NONE-FEW) Urine Bacteria (NEGATIVE) Urine Mucus (NONE-MOD) 02/19/21 02/19/21 02/20/21 Range/Units 19:53 23:40 06:43 WBC (4.0-11.0) K/uL RBC (4.50-5.90) M/uL Hgb (13.0-17.0) g/dL Hct (38.0-50.0) % MCV (80.0-98.0) fL MCH (27.0-32.0) pg MCHC (31.0-37.0) g/dL RDW Std Deviation (28.0-62.0) fl RDW Coeff of Mary (11.0-15.0) % Plt Count (150-400) K/uL MPV (7.40-12.00) fL Neut % (Auto) (48.0-80.0) % Lymph % (Auto) (16.0-40.0) % Rains % (Auto) (0.0-15.0) % Eos % (Auto) (0.0-7.0) % Baso % (Auto) (0.0-1.5) % Neut # (Auto) (1.4-5.7) K/uL Lymph # (Auto) (0.6-2.4) K/uL Rains # (Auto) (0.0-0.8) K/uL Eos # (Auto) (0.0-0.7) K/uL Baso # (Auto) (0.0-0.1) K/uL Nucleated RBC % /100WBC Nucleated RBCs # K/uL INR Sodium 133 L (136-148) mmol/L Potassium 5.0 (3.5-5.1) mmol/L Chloride 97 L (98-107) mmol/L Carbon Dioxide 24.4 (21.0-32.0) mmol/L BUN 20 H (7.0-18.0) mg/dL Creatinine 1.3 (0.8-1.3) mg/dL Est Cr Clr Drug Dosing 80.33 mL/min Estimated GFR (MDRD) > 60.0 ml/min Glucose 109 H (74-106) mg/dL POC Glucose 101 H (70-99) mg/dL Hemoglobin A1c (4.5 - 6.2) % Calcium 8.0 L (8.5-10.1) mg/dL Total Bilirubin (0.2-1.0) mg/dL AST (15-37) IU/L ALT (14-63) IU/L Alkaline Phosphatase (46-116) U/L Creatine Kinase 8720 H (26-308) U/L Total Protein (6.4-8.2) g/dL Albumin (3.4-5.0) g/dL Globulin (2.6-4.0) g/dL Albumin/Globulin Ratio (0.9-1.6) Urine Color YELLOW Urine Appearance CLEAR Urine pH 5.0 (5.0-8.0) Ur Specific [place] 1.020 (1.001-1.035) Urine Protein NEGATIVE (NEGATIVE) mg/dL Urine Glucose (UA) NEGATIVE (NEGATIVE) mg/dL Urine Ketones TRACE H (NEGATIVE) mg/dL Urine Occult Blood NEGATIVE (NEGATIVE) Urine Nitrite NEGATIVE (NEGATIVE) Urine Bilirubin NEGATIVE (NEGATIVE) Urine Urobilinogen 0.2 (<2.0) EU/dL Ur Leukocyte Esterase NEGATIVE (NEGATIVE) U Hyaline Cast (Auto) 2-4 (0-2/LPF) Urine RBC NONE SEEN (0-2/HPF) Urine WBC 0-2 (0-5/HPF) Ur Epithelial Cells RARE (NONE-FEW) Urine Bacteria FEW (NEGATIVE) Urine Mucus LIGHT (NONE-MOD) 02/20/21 02/20/21 02/20/21 Range/Units 07:00 07:00 07:00 WBC 7.26 (4.0-11.0) K/uL RBC 4.87 (4.50-5.90) M/uL Hgb 12.6 L (13.0-17.0) g/dL Hct 38.7 (38.0-50.0) % MCV 79.5 L (80.0-98.0) fL MCH 25.9 L (27.0-32.0) pg MCHC 32.6 (31.0-37.0) g/dL RDW Std Deviation 40.6 (28.0-62.0) fl RDW Coeff of Mary 14 (11.0-15.0) % Plt Count 258 (150-400) K/uL MPV 10.20 (7.40-12.00) fL Neut % (Auto) (48.0-80.0) % Lymph % (Auto) (16.0-40.0) % Rains % (Auto) (0.0-15.0) % Eos % (Auto) (0.0-7.0) % Baso % (Auto) (0.0-1.5) % Neut # (Auto) (1.4-5.7) K/uL Lymph # (Auto) (0.6-2.4) K/uL Rains # (Auto) (0.0-0.8) K/uL Eos # (Auto) (0.0-0.7) K/uL Baso # (Auto) (0.0-0.1) K/uL Nucleated RBC % 0.0 /100WBC Nucleated RBCs # 0 K/uL INR Sodium 135 L (136-148) mmol/L Potassium 5.7 H (3.5-5.1) mmol/L Chloride 103 (98-107) mmol/L Carbon Dioxide 27.5 (21.0-32.0) mmol/L BUN 16 (7.0-18.0) mg/dL Creatinine 1.0 (0.8-1.3) mg/dL Est Cr Clr Drug Dosing 104.43 mL/min Estimated GFR (MDRD) > 60.0 ml/min Glucose 103 (74-106) mg/dL POC Glucose (70-99) mg/dL Hemoglobin A1c 6.9 H (4.5 - 6.2) % Calcium 8.1 L (8.5-10.1) mg/dL Total Bilirubin (0.2-1.0) mg/dL AST (15-37) IU/L ALT (14-63) IU/L Alkaline Phosphatase (46-116) U/L Creatine Kinase 5654 H (26-308) U/L Total Protein (6.4-8.2) g/dL Albumin (3.4-5.0) g/dL Globulin (2.6-4.0) g/dL Albumin/Globulin Ratio (0.9-1.6) Urine Color Urine Appearance Urine pH (5.0-8.0) Ur Specific [place] (1.001-1.035) Urine Protein (NEGATIVE) mg/dL Urine Glucose (UA) (NEGATIVE) mg/dL Urine Ketones (NEGATIVE) mg/dL Urine Occult Blood (NEGATIVE) Urine Nitrite (NEGATIVE) Urine Bilirubin (NEGATIVE) Urine Urobilinogen (<2.0) EU/dL Ur Leukocyte Esterase (NEGATIVE) U Hyaline Cast (Auto) (0-2/LPF) Urine RBC (0-2/HPF) Urine WBC (0-5/HPF) Ur Epithelial Cells (NONE-FEW) Urine Bacteria (NEGATIVE) Urine Mucus (NONE-MOD) 02/20/21 02/20/21 Range/Units 11:40 14:02 WBC (4.0-11.0) K/uL RBC (4.50-5.90) M/uL Hgb (13.0-17.0) g/dL Hct (38.0-50.0) % MCV (80.0-98.0) fL MCH (27.0-32.0) pg MCHC (31.0-37.0) g/dL RDW Std Deviation (28.0-62.0) fl RDW Coeff of Mary (11.0-15.0) % Plt Count (150-400) K/uL MPV (7.40-12.00) fL Neut % (Auto) (48.0-80.0) % Lymph % (Auto) (16.0-40.0) % Rains % (Auto) (0.0-15.0) % Eos % (Auto) (0.0-7.0) % Baso % (Auto) (0.0-1.5) % Neut # (Auto) (1.4-5.7) K/uL Lymph # (Auto) (0.6-2.4) K/uL Rains # (Auto) (0.0-0.8) K/uL Eos # (Auto) (0.0-0.7) K/uL Baso # (Auto) (0.0-0.1) K/uL Nucleated RBC % /100WBC Nucleated RBCs # K/uL INR Sodium 137 (136-148) mmol/L Potassium 5.1 (3.5-5.1) mmol/L Chloride 103 (98-107) mmol/L Carbon Dioxide 24.2 (21.0-32.0) mmol/L BUN 16 (7.0-18.0) mg/dL Creatinine 0.9 (0.8-1.3) mg/dL Est Cr Clr Drug Dosing 116.03 mL/min Estimated GFR (MDRD) > 60.0 ml/min Glucose 115 H (74-106) mg/dL POC Glucose 102 H (70-99) mg/dL Hemoglobin A1c (4.5 - 6.2) % Calcium 8.1 L (8.5-10.1) mg/dL Total Bilirubin (0.2-1.0) mg/dL AST (15-37) IU/L ALT (14-63) IU/L Alkaline Phosphatase (46-116) U/L Creatine Kinase (26-308) U/L Total Protein (6.4-8.2) g/dL Albumin (3.4-5.0) g/dL Globulin (2.6-4.0) g/dL Albumin/Globulin Ratio (0.9-1.6) Urine Color Urine Appearance Urine pH (5.0-8.0) Ur Specific [place] (1.001-1.035) Urine Protein (NEGATIVE) mg/dL Urine Glucose (UA) (NEGATIVE) mg/dL Urine Ketones (NEGATIVE) mg/dL Urine Occult Blood (NEGATIVE) Urine Nitrite (NEGATIVE) Urine Bilirubin (NEGATIVE) Urine Urobilinogen (<2.0) EU/dL Ur Leukocyte Esterase (NEGATIVE) U Hyaline Cast (Auto) (0-2/LPF) Urine RBC (0-2/HPF) Urine WBC (0-5/HPF) Ur Epithelial Cells (NONE-FEW) Urine Bacteria (NEGATIVE) Urine Mucus (NONE-MOD) Result Diagrams: 02/20/21 07:00 02/20/21 14:02 Sepsis Event Note - Evaluation Sepsis Screening Result: No Definite Risk - Focused Exam Vital Signs: Vital Signs Temp Pulse Resp BP BP Pulse Ox 02/20/21 12:00 97.7 F 88 16 101/49 L 99 02/20/21 09:50 162/89 H 02/20/21 08:00 98.4 F 99 16 162/89 H 98 - Problem List & Annotations (1) ATA (acute kidney injury) SNOMED Code(s): 29855355, 47726199 Code(s): N17.9 - ACUTE KIDNEY FAILURE, UNSPECIFIED Status: Acute Current Visit: Yes (2) Heat exhaustion SNOMED Code(s): 92658850 Code(s): T67.5XXA - HEAT EXHAUSTION, UNSPECIFIED, INITIAL ENCOUNTER Status: Acute Current Visit: Yes (3) Rhabdomyolysis SNOMED Code(s): 718676369 Code(s): M62.82 - RHABDOMYOLYSIS Status: Acute Current Visit: Yes - Problem List Review Problem List Initiated/Reviewed/Updated: Yes - My Orders Last 24 Hours: My Active Orders 02/20/21 09:30 Enalapril [Vasotec] 10 mg PO DAILY 02/20/21 11:29 Telemetry Monitoring [Cardiac Monitoring] [RC] . DIRECTED - Plan Plan:: 35-year-old male admitted for heat exhaustion, rhabdomyolysis and acute kidney injury. We will continue the patient on normal saline at 250 mL/h. His CPK has down trended to [id number]. His potassium was slightly elevated at 5.7 but is now normal. We will continue fluids and continue to trend his CPK. Patient's home enalapril was restarted for high blood pressure. Patient placed on telemetry.
[2021-02-21] MEDS: Sodium Chloride 0.9% 1,000 ML IV SCH (01:57)
[2021-02-21 06:57] LABS: BLOOD UREA NITROGEN,BUN 10 mg/dL (7.0-18.0); CARBON DIOXIDE,CO2 27.5 mmol/L (21.0-32.0); CHLORIDE,CL 105 mmol/L (98-107); GLUCOSE RANDOM 96 mg/dL (74-106); POTASSIUM,K 4.9 mmol/L (3.5-5.1); SODIUM,NA 137 mmol/L (136-148)
[2021-02-21] MEDS: Insulin Aspart 100 Units/ML 3 ML Pen SUBCUT SCH ×2 (08:48→13:37)
--- NOTE | 2021-02-21 11:58 | PCM.DCSUM1 ---
Discharge Summary - Hospital Course Free Text/Narrative:: 35-year-old male with a history of diabetes mellitus and hypertension was admitted to the hospital for heat exhaustion, acute kidney injury and rhabdomyolysis. Patient had an elevated CPK of 9000. He had an elevated BUN and creatinine. Patient was treated with aggressive IV fluid hydration. On day 2 patient's acute kidney injury resolved and his CPK decreased to 5600. Patient tolerated diet well. Patient was continued on maintenance normal saline at 250 mL/h. His CPK today is 2000. Patient had elevated blood pressure which was controlled by restarting his home enalapril. [place] and [place] for work. - Discharge Data Discharge Date: 02/21/21 Discharge Disposition: Home, Self-Care 01 Condition: Stable - Referral to Home Health Primary Care Physician: PCP Not In Area - Discharge Diagnosis/Problem(s) (1) ATA (acute kidney injury) SNOMED Code(s): 31934550, 48495529 ICD Code: N17.9 - ACUTE KIDNEY FAILURE, UNSPECIFIED Status: Acute (2) Heat exhaustion SNOMED Code(s): 37861404 ICD Code: T67.5XXA - HEAT EXHAUSTION, UNSPECIFIED, INITIAL ENCOUNTER Status: Acute (3) Rhabdomyolysis SNOMED Code(s): 302812340 ICD Code: M62.82 - RHABDOMYOLYSIS Status: Acute - Patient Instructions Diet: Diabetic Diet Activity: As Tolerated Notify Provider of: Fever, Increased Pain Other/Special Instructions: If you experience abdominal pain, pain with urination, or blood in urine, please seek medical attention. - Discharge Plan *PRESCRIPTION DRUG MONITORING PROGRAM REVIEWED*: Not Applicable *COPY OF PRESCRIPTION DRUG MONITORING REPORT IN PATIENT PIPPA: Not Applicable Home Medications: Home Meds Enalapril [Vasotec] 10 mg PO DAILY 02/19/21 [History] atorvaSTATin [Lipitor] 80 mg PO DAILY 02/19/21 [History] metFORMIN [Glucophage XR] 1,000 mg PO BID 02/19/21 [History] Patient Handouts: Acute Kidney Injury, Adult, Preventing Heat Exhaustion, Adult Referrals: PCP,Not In Area [Primary Care Provider] - - Discharge Summary/Plan Comment DC Time >30 min.: Yes - Patient Data Vitals - Most Recent: Last Vital Signs Temp 97.6 F 02/21/21 08:00 Pulse 85 02/21/21 08:00 Resp 16 07/28/21 08:00 BP 132/69 02/21/21 08:49 Pulse Ox 98 02/21/21 08:00 Weight - Most Recent: 316 lb 12.868 oz I&O - Last 24 hours: Intake & Output 02/20/21 02/21/21 02/21/21 22:59 06:59 14:59 Intake Total 4246 6514 Output Total 1999 1969 Balance 2246 9443 Lab Results - Last 24 hrs: Laboratory Results - last 24 hr 02/20/21 02/20/21 02/21/21 Range/Units 14:02 17:42 05:56 Sodium 137 137 (136-148) mmol/L Potassium 5.1 4.9 (3.5-5.1) mmol/L Chloride 103 105 (98-107) mmol/L Carbon Dioxide 24.2 27.5 (21.0-32.0) mmol/L BUN 16 10 (7.0-18.0) mg/dL Creatinine 0.9 0.9 (0.8-1.3) mg/dL Est Cr Clr Drug Dosing 116.03 116.03 mL/min Estimated GFR (MDRD) > 60.0 > 60.0 ml/min Glucose 115 H 96 (74-106) mg/dL POC Glucose 111 H (70-99) mg/dL Calcium 8.1 L 7.9 L (8.5-10.1) mg/dL Creatine Kinase 2195 H (26-308) U/L 02/21/21 Range/Units 06:34 Sodium (136-148) mmol/L Potassium (3.5-5.1) mmol/L Chloride (98-107) mmol/L Carbon Dioxide (21.0-32.0) mmol/L BUN (7.0-18.0) mg/dL Creatinine (0.8-1.3) mg/dL Est Cr Clr Drug Dosing mL/min Estimated GFR (MDRD) ml/min Glucose (74-106) mg/dL POC Glucose 101 H (70-99) mg/dL Calcium (8.5-10.1) mg/dL Creatine Kinase (26-308) U/L Med Orders - Current: Current Medications Dextrose/Water (50% Dextrose In Water 50 Ml Syringe) 50 ml IVPUSH ASDIRECTED PRN PRN Reason: Hypoglycemia Enalapril Maleate (Enalapril 10 Mg Tab) 10 mg PO DAILY [facility] Last Admin: 02/21/21 08:49 Dose: 10 mg Documented by: Glucagon (Glucagon,Human Recombinant 1 Mg Vial) 1 mg IM ASDIRECTED PRN PRN Reason: Hypoglycemia Sodium Chloride (Normal Saline) 1,000 mls @ 250 mls/hr IV ASDIRECTED [facility] Last Admin: 02/21/21 01:57 Dose: 250 mls/hr Documented by: Insulin Aspart (Insulin Aspart 100 Units/Ml 3 Ml Pen) 0 unit SUBCUT TIDAC [facility]; Protocol Last Admin: 02/21/21 08:48 Dose: Not Given Documented by: Discontinued Medications Sodium Chloride (Normal Saline) 1,000 mls @ 1,000 mls/min IV .Bolus ONE Stop: 02/19/21 18:28 Last Admin: 02/19/21 18:34 Dose: 1,000 mls/min Documented by: Sodium Chloride (Normal Saline) 1,000 mls @ 1,000 mls/min IV .Bolus ONE Stop: 02/19/21 18:31 Last Admin: 02/19/21 18:34 Dose: 1,000 mls/min Documented by: Sodium Chloride (Normal Saline) 1,000 mls @ 999 mls/hr IV .Bolus ONE Stop: 02/19/21 23:09 Last Admin: 02/19/21 22:26 Dose: 999 mls/hr Documented by:
== END 2021-02-21 14:15 | disposition home or self-care (01) ==
LOC: MW.ED 17:04 → MW.MS 20:10
PROVIDERS: ADMIT Internal Medicine; ATTEND Internal Medicine
DX: T67.5XXA Heat exhaustion, unspecified, initial encounter (principal); E86.0 Dehydration; N17.9 Acute kidney failure, unspecified; M62.82 Rhabdomyolysis; I10 Essential (primary) hypertension; E11.9 Type 2 diabetes mellitus without complications; E78.00 Pure hypercholesterolemia, unspecified; E66.9 Obesity, unspecified; F17.200 Nicotine dependence, unspecified, uncomplicated; Z79.899 Other long term (current) drug therapy; Z79.84 Long term (current) use of oral hypoglycemic drugs; Z68.42 Body mass index [BMI] 45.0-49.9, adult
CPT/HCPCS: 36415; 80048; 80053; 81001; 82550; 82947; 83036; 85025; 85027; 85610; 99285; A9270; J7030